=== PATIENT | female | born 2000 | race African-American/Black ===

== ENCOUNTER 2020-08-29 05:35 | Inpatient (IN) ==
[2020-08-29] MEDS ORDERED: BUTORPHANOL 2 MG/ML VIAL IV PRN (05:56)
[2020-08-29] MEDS ORDERED: MEPERIDINE 50 MG/1 ML VIAL IV PRN (05:56)
[2020-08-29] MEDS ORDERED: AMPICILLIN INJ 2,000 MG in SODIUM CHLORIDE 0.9% 100 ML IV ONE (05:58)
[2020-08-29] MEDS ORDERED: SODIUM CHLORIDE 0.9% 100 ML IV ONE (05:59)
[2020-08-29] MEDS ORDERED: AMPICILLIN 2,000 MG VIAL ONE (05:59)
[2020-08-29] MEDS ORDERED: LACTATED RINGERS 1,000 ML IV SCH (06:00)
[2020-08-29] MEDS: ONDANSETRON 4 MG/2 ML VIAL IV PRN ×2 (06:07→11:59)
[2020-08-29 06:21] LABS: Basophils % 0.1 % (0.0-0.8); Eosinophils # 0.1 10*3/uL (0.0-0.87); Eosinophils % 0.5 % (0.00-10.9); Hematocrit 32.7 VOL% (35.7-47.0); Hemoglobin 10.6 GM/DL (12.0-16.0); Immature Granulocytes % 1.1 %; Immature Granulocytes Absolute 0.12 #; Lymphocytes # 2.2 10*3/uL (1.4-4.0); Lymphocytes % 19.7 % (21.3-54.2); Mean Corpuscular HGB Conc 32.4 GM/DL (32-36); Mean Corpuscular Volume 86.5 FL (87-102); Mean Platelet Volume 11.5 FL (9.6-12.0); Monocytes % 9.5 % (1.7-12.7); Neutrophils % 69.1 % (38.7-73.9); Platelet Count 231 T/CUMM (130-400); Red Blood Count 3.78 MC/CUMM (3.8-5.5); Red Cell Distribution Width 13.1 % (9.3-17.3)
[2020-08-29 06:31] LABS: Alanine Aminotransferase 13 U/L (13-56); Albumin 2.7 G/DL (3.4-5.0); Alkaline Phosphatase 232 U/L (45-117); Aspartate Amino Transferase 20 U/L (0-37); Bilirubin,Total < 0.39 MG/DL (0.2-1.0); Blood Urea Nitrogen 7 MG/DL (7-18); Calcium 8.8 MG/DL (8.5-10.1); Estimated Glom Filtration Rate 155 ML/MIN; Glucose 81 MG/DL (74-106); Osmolality,Calculated 266.1 MOS/KG (273-304); Total Protein 7.8 G/DL (6.4-8.3)
[2020-08-29 06:54] LABS: Hypochromasia 2+; Platelet Estimate Normal
[2020-08-29] MEDS ORDERED: CITRIC ACID/SODIUM CITRATE 30 ML UDCUP PO ONE (07:31)
[2020-08-29] MEDS ORDERED: diphenhydrAMINE 50 MG/1 ML VIAL IV PRN ×2 (07:38)
[2020-08-29] MEDS ORDERED: PROMETHAZINE 25 MG/1 ML VIAL IM ONE (07:38)
[2020-08-29] MEDS ORDERED: hydrOXYzine HCL 25 MG/1 ML VIAL IM PRN (07:38)
[2020-08-29] MEDS ORDERED: ePHEDrine 50 MG/ML VIAL IV PRN (07:38)
[2020-08-29] MEDS ORDERED: ONDANSETRON 4 MG/2 ML VIAL IV ONE (07:38)
[2020-08-29] MEDS ORDERED: NALOXONE 0.4 MG/ML VIAL IV PRN (07:38)
[2020-08-29] MEDS ORDERED: FAMOTIDINE 20 MG/2 ML VIAL IV ONE (07:42)
[2020-08-29] MEDS ORDERED: LACTATED RINGERS 1,000 ML IV ONE (07:42)
[2020-08-29] MEDS ORDERED: fentaNYL 2 MCG/ROPIV 0.2% EPID 100 ML EPIDURAL SCH (08:00)
[2020-08-29] MEDS ORDERED: FAMOTIDINE 20 MG TABLET PO ONE (08:00)
[2020-08-29] MEDS ORDERED: OXYTOCIN/LR 20 UNIT/1,000 ML BAG IV SCH (09:00)
[2020-08-29 09:46] LABS: Bilirubin,Urine Negative (Negative); Blood, Urine Small mg/dL (Negative); Glucose,Urine (UA) Negative (Negative); Ketones,Urine Negative (Negative); Mucus,Urine Occasional /LPF (Occasional); Nitrite,Urine Negative (Negative); Protein,Urine Negative; RBC,Urine 15 /HPF (0-4); Squamous Epithelial Cell,Urine Occasional /HPF (0-10); Urine Appearance CLEAR (Clear); Urine Color Yellow (Yellow); Urine Urobilinogen < 2.0 EU/DL (0.2-1.0); WBC,Urine 1 /HPF (0-6)
[2020-08-29] MEDS ORDERED: AMPICILLIN INJ 1,000 MG in SODIUM CHLORIDE 0.9% 100 ML IV SCH (10:00)
[2020-08-29] MEDS ORDERED: TRANEXAMIC ACID 1,000 MG/10 ML VIAL ONE (10:17)
[2020-08-29] MEDS ORDERED: miSOPROStoL 200 MCG TABLET ONE (10:17)
[2020-08-29] MEDS ORDERED: METHYLERGONOVINE 0.2 MG/1 ML AMP ONE (10:18)
[2020-08-29] MEDS ORDERED: CARBOPROST TROMETHAMINE 250 MCG/ML AMP IM ONE (10:18)
[2020-08-29 10:37] LABS: Cord Venous Blood HCO3 22.4 MMOL/L; Cord Venous Blood PCO2 38.7 MMHG; Cord Venous Blood PO2 48.9 MMHG
[2020-08-29 10:38] LABS: Cord Arterial Blood HCO3 21.9 MMOL/L
[2020-08-29] MEDS: DOCUSATE SODIUM 100 MG CAPSULE PO PRN (21:28)
[2020-08-30] MEDS: IBUPROFEN 800 MG TABLET PO PRN ×2 (00:21→23:32)
[2020-08-30 05:15] LABS: Basophils % 0.2 % (0.0-0.8); Eosinophils # 0.1 10*3/uL (0.0-0.87); Eosinophils % 0.5 % (0.00-10.9); Hematocrit 24.9 VOL% (35.7-47.0); Immature Granulocytes % 0.4 %; Immature Granulocytes Absolute 0.05 #; Lymphocytes # 3.1 10*3/uL (1.4-4.0); Lymphocytes % 26.9 % (21.3-54.2); Mean Corpuscular HGB Conc 32.1 GM/DL (32-36); Mean Corpuscular Volume 85.6 FL (87-102); Mean Platelet Volume 11.9 FL (9.6-12.0); Monocytes % 8.5 % (1.7-12.7); Neutrophils % 63.5 % (38.7-73.9); Red Cell Distribution Width 13.1 % (9.3-17.3); White Blood Count 11.5 T/CUMM (4-12)
[2020-08-30 05:34] LABS: Platelet Count 170 T/CUMM (130-400); Red Blood Count 2.91 MC/CUMM (3.8-5.5)
[2020-08-30 06:10] LABS: Eosinophils 2 % (0-10); Hypochromasia 1+; Lymphocytes 18 % (20-55); Microcytosis Slight; Platelet Estimate Normal; Segmented Neutrophils 75 % (50-85); Total Cells Counted 100
[2020-08-30] MEDS: DOCUSATE SODIUM 100 MG CAPSULE PO PRN (20:48)
[2020-08-30] MEDS: FERROUS SULFATE 325 MG TABLET PO SCH (20:48)
[2020-08-31 08:00] VITALS: BP 111/50
[2020-08-31] MEDS: DOCUSATE SODIUM 100 MG CAPSULE PO PRN (09:09)
[2020-08-31] MEDS: FERROUS SULFATE 325 MG TABLET PO SCH (09:09)
== END 2020-08-31 11:35 | disposition home or self-care (01) | DRG 560 ==
LOC: N.LD 05:35 → N.LDOUT 05:35 → N.LD 05:37 → N.OB 12:35
PROVIDERS: ADMIT Obstetrics & Gynecology; ATTEND Obstetrics & Gynecology

== ENCOUNTER 2021-10-20 12:03 | Inpatient (IN) ==
[2021-10-20] MEDS ORDERED: CARBOPROST TROMETHAMINE 250 MCG/ML AMP IM PRN (12:09)
[2021-10-20] MEDS ORDERED: miSOPROStoL 200 MCG TABLET PO PRN (12:09)
[2021-10-20] MEDS ORDERED: ONDANSETRON 4 MG/2 ML VIAL IV PRN (12:09)
[2021-10-20] MEDS ORDERED: MEPERIDINE 50 MG/1 ML VIAL IV PRN (12:09)
[2021-10-20] MEDS ORDERED: LIDOCAINE 1% 50 ML VIAL MISC INJ ONE (12:09)
[2021-10-20] MEDS ORDERED: ePHEDrine 50 MG/ML VIAL IV PRN ×2 (12:15→12:16)
[2021-10-20] MEDS ORDERED: CITRIC ACID/SODIUM CITRATE 30 ML UDCUP PO ONE (12:15)
[2021-10-20] MEDS ORDERED: LACTATED RINGERS 1,000 ML IV ONE (12:15)
[2021-10-20] MEDS ORDERED: FAMOTIDINE 20 MG/2 ML VIAL IV ONE (12:15)
[2021-10-20] MEDS ORDERED: PROMETHAZINE 25 MG/1 ML VIAL IM ONE (12:16)
[2021-10-20] MEDS ORDERED: NALOXONE 0.4 MG/ML VIAL IV PRN (12:16)
[2021-10-20] MEDS ORDERED: hydrOXYzine HCL 25 MG/1 ML VIAL IM PRN (12:16)
[2021-10-20] MEDS ORDERED: diphenhydrAMINE 50 MG/1 ML VIAL IV PRN ×2 (12:16)
[2021-10-20] MEDS ORDERED: LACTATED RINGERS 250 ML IV PRN (12:16)
[2021-10-20] MEDS ORDERED: LACTATED RINGERS 1,000 ML IV SCH ×2 (12:30)
[2021-10-20] MEDS ORDERED: OXYTOCIN/LR 20 UNIT/1,000 ML BAG IV SCH (12:30)
[2021-10-20] MEDS ORDERED: fentaNYL 2 MCG/ROPIV 0.2% EPID 100 ML EPIDURAL SCH (12:30)
[2021-10-20 12:33] LABS: Basophils % 0.2 % (0.0-0.8); Eosinophils # 0.1 10*3/uL (0.0-0.87); Eosinophils % 2.1 % (0.00-10.9); Hematocrit 29.2 VOL% (35.7-47.0); Hemoglobin 9.1 GM/DL (12.0-16.0); Immature Granulocytes % 0.3 %; Immature Granulocytes Absolute 0.02 #; Lymphocytes # 1.5 10*3/uL (1.4-4.0); Lymphocytes % 25.3 % (21.3-54.2); Mean Corpuscular HGB Conc 31.2 GM/DL (32-36); Mean Corpuscular Volume 82.7 FL (87-102); Mean Platelet Volume 12.5 FL (9.6-12.0); Monocytes % 10.4 % (1.7-12.7); Neutrophils % 61.7 % (38.7-73.9); Platelet Count 191 T/CUMM (130-400); Red Blood Count 3.53 MC/CUMM (3.8-5.5); Red Cell Distribution Width 15.7 % (9.3-17.3); White Blood Count 5.8 T/CUMM (4-12)
[2021-10-20] MEDS ORDERED: AMPICILLIN INJ 2,000 MG in SODIUM CHLORIDE 0.9% 100 ML IV ONE (12:45)
[2021-10-20 13:09] LABS: Alanine Aminotransferase 15 U/L (13-56); Albumin 2.5 G/DL (3.4-5.0); Alkaline Phosphatase 233 U/L (45-117); Aspartate Amino Transferase 21 U/L (0-37); Bilirubin,Total < 0.39 MG/DL (0.20-1.00); Blood Urea Nitrogen 6 MG/DL (7-18); Calcium 8.7 MG/DL (8.5-10.1); Carbon Dioxide 21 MMOL/L (21-32); Estimated Glom Filtration Rate 154 ML/MIN; Glucose 69 MG/DL (74-106); Potassium 3.7 MMOL/L (3.5-5.1); Sodium 136 MMOL/L (136-145); Total Protein 7.1 G/DL (6.4-8.2)
[2021-10-20 15:24] LABS: Bilirubin,Urine Negative (Negative); Blood, Urine Large mg/dL (Negative); Glucose,Urine (UA) Negative (Negative); Ketones,Urine Negative (Negative); Mucus,Urine Occasional /LPF (Occasional); Nitrite,Urine Negative (Negative); Protein,Urine 30 MG/DL; RBC,Urine 910 /HPF (0-4); Urine Appearance Slightly Hazy (Clear); Urine Color Yellow (Yellow); Urine Specific Gravity 1.018 (1.001-1.035); Urine Urobilinogen < 2.0 EU/DL (<2.0)
[2021-10-20] MEDS ORDERED: miSOPROStoL 200 MCG TABLET ONE (16:50)
[2021-10-20] MEDS ORDERED: METHYLERGONOVINE 0.2 MG/1 ML AMP ONE (16:51)
[2021-10-20] MEDS ORDERED: CARBOPROST TROMETHAMINE 250 MCG/ML AMP IM ONE (16:51)
[2021-10-20] MEDS ORDERED: AMPICILLIN INJ 1,000 MG in SODIUM CHLORIDE 0.9% 100 ML IV SCH (17:00)
[2021-10-20 17:47] LABS: Eosinophils 3 % (0-10); Hypochromasia 1+; Lymphocytes 24 % (20-55); Microcytosis 1+; Platelet Estimate Normal; Segmented Neutrophils 63 % (50-85); Total Cells Counted 100
[2021-10-20 17:49] LABS: Cord Venous Blood HCO3 22.4 MMOL/L; Cord Venous Blood PCO2 43.5 MMHG
[2021-10-20] MEDS ORDERED: LANOLIN 50% CREAM 0.3 OZ TUBE TOP PRN (20:33)
[2021-10-20] MEDS ORDERED: BISACODYL 10 MG SUPP RECTAL PRN (20:33)
[2021-10-20] MEDS ORDERED: BENZOCAINE 20%/MENTHOL 0.5% SPRAY 56 GM CAN TOP PRN (20:33)
[2021-10-20] MEDS ORDERED: WITCH HAZEL PADS 100/JAR TOP PRN (20:33)
[2021-10-20] MEDS ORDERED: RHO(D) IMMUNE GLOBULIN 300 MCG SYRINGE IM ONE (20:33)
[2021-10-20] MEDS ORDERED: OXYTOCIN/LR 20 UNIT/1,000 ML BAG IV ONE (20:33)
[2021-10-20] MEDS ORDERED: DIPH/TET/ACEL PERT BOOSTER VACCINE 0.5 ML VIAL IM ONE (20:33)
[2021-10-20] MEDS ORDERED: oxyCODONE/ACETAMINOPHEN 5-325 MG TABLET PO PRN (20:33)
[2021-10-20] MEDS ORDERED: HYDROCORTISONE 2.5% RECTAL CREAM 30 GM TUBE TOP PRN (20:33)
[2021-10-20] MEDS ORDERED: MEASLES/MUMPS/RUBELLA VACCINE 0.5 ML VIAL SUBCUT ONE (20:33)
[2021-10-20] MEDS ORDERED: ACETAMINOPHEN 325 MG TABLET PO PRN (20:33)
[2021-10-20] MEDS: oxyCODONE/ACETAMINOPHEN 5-325 MG TABLET PO PRN (20:43)
[2021-10-20] MEDS: DOCUSATE SODIUM 100 MG CAPSULE PO SCH (20:43)
[2021-10-20] MEDS: IBUPROFEN 800 MG TABLET PO PRN (23:22)
[2021-10-21 05:51] LABS: Basophils % 0.3 % (0.0-0.8); Eosinophils % 0.6 % (0.00-10.9); Immature Granulocytes % 0.4 %; Immature Granulocytes Absolute 0.03 #; Lymphocytes # 1.6 10*3/uL (1.4-4.0); Lymphocytes % 21.4 % (21.3-54.2); Mean Corpuscular Volume 82.9 FL (87-102); Mean Platelet Volume 12.6 FL (9.6-12.0); Monocytes % 6.9 % (1.7-12.7); Neutrophils % 70.4 % (38.7-73.9); Platelet Count 177 T/CUMM (130-400); Red Cell Distribution Width 15.5 % (9.3-17.3); White Blood Count 7.2 T/CUMM (4-12)
[2021-10-21] MEDS: oxyCODONE/ACETAMINOPHEN 5-325 MG TABLET PO PRN ×2 (08:13→18:59)
[2021-10-21] MEDS: DOCUSATE SODIUM 100 MG CAPSULE PO SCH ×3 (08:13→21:38)
[2021-10-21] MEDS: IBUPROFEN 800 MG TABLET PO PRN ×2 (08:13→19:00)
[2021-10-21] MEDS ORDERED: diphenhydrAMINE CAP 25 MG CAPSULE PO PRN (16:05)
[2021-10-21] MEDS ORDERED: MENTHOL/ZINC OXIDE OINT 71 GM JAR TOP PRN (22:30)
[2021-10-22] MEDS: IBUPROFEN 800 MG TABLET PO PRN ×2 (00:25→06:17)
[2021-10-22] MEDS: oxyCODONE/ACETAMINOPHEN 5-325 MG TABLET PO PRN ×2 (00:25→06:18)
[2021-10-22] MEDS: FLUTICASONE 50 MCG NASAL SPRAY 16 GM BOTTLE BOTH NARES SCH ×2 (04:47→08:59)
[2021-10-22 08:07] VITALS: BP 123/71
[2021-10-22] MEDS: DOCUSATE SODIUM 100 MG CAPSULE PO SCH (08:59)
== END 2021-10-22 10:45 | disposition home or self-care (01) | DRG 560 ==
LOC: N.LD 12:03 → N.OB 20:25
PROVIDERS: ADMIT Obstetrics & Gynecology; ATTEND Obstetrics & Gynecology

== ENCOUNTER 2022-11-14 05:20 | Inpatient (IN) ==
[2022-11-14] MEDS ORDERED: METHYLERGONOVINE 0.2 MG/1 ML AMP IM PRN (05:29)
[2022-11-14] MEDS ORDERED: OXYTOCIN/LR 20 UNIT/1,000 ML BAG IV ONE ×3 (05:29→12:48)
[2022-11-14] MEDS ORDERED: CARBOPROST TROMETHAMINE 250 MCG/ML AMP IM PRN (05:29)
[2022-11-14] MEDS ORDERED: miSOPROStoL 200 MCG TABLET RECTAL PRN (05:29)
[2022-11-14] MEDS ORDERED: TRANEXAMIC ACID 1,000 MG in SODIUM CHLORIDE 0.9% 100 ML IV PRN (05:29)
[2022-11-14] MEDS ORDERED: BUTORPHANOL 2 MG/ML VIAL IV PRN (05:29)
[2022-11-14] MEDS ORDERED: MEPERIDINE 50 MG/1 ML VIAL IV PRN (05:29)
[2022-11-14] MEDS ORDERED: ONDANSETRON 4 MG/2 ML VIAL IV PRN (05:29)
[2022-11-14 06:05] LABS: Basophils % 0.1 % (0.0-0.8); Eosinophils % 0.6 % (0.00-10.9); Hematocrit 27.4 VOL% (35.7-47.0); Hemoglobin 8.5 GM/DL (12.0-16.0); Immature Granulocytes % 0.3 %; Immature Granulocytes Absolute 0.02 #; Lymphocytes # 2.8 10*3/uL (1.4-4.0); Lymphocytes % 40.2 % (21.3-54.2); Mean Corpuscular Volume 76.8 FL (87-102); Mean Platelet Volume 11.5 FL (9.6-12.0); Monocytes # 0.7 10*3/uL (0.11-0.8); NRBC # 0.02 10*3/uL; Neutrophils % 48.8 % (38.7-73.9); Platelet Count 225 T/CUMM (130-400); Red Blood Count 3.57 MC/CUMM (3.8-5.5)
[2022-11-14] MEDS: LACTATED RINGERS 1,000 ML IV SCH ×2 (06:11→09:12)
[2022-11-14 06:24] LABS: Hypochromia Slight; Microcytosis Slight; Platelet Estimate Normal
[2022-11-14] MEDS ORDERED: LACTATED RINGERS 1,000 ML IV ONE (06:26)
[2022-11-14] MEDS ORDERED: PROMETHAZINE 25 MG/1 ML VIAL IM ONE (06:26)
[2022-11-14] MEDS ORDERED: CITRIC ACID/SODIUM CITRATE 30 ML UDCUP PO ONE (06:26)
[2022-11-14] MEDS ORDERED: FAMOTIDINE 20 MG/2 ML VIAL IV ONE (06:26)
[2022-11-14] MEDS ORDERED: ePHEDrine 50 MG/ML VIAL IV PRN (06:26)
[2022-11-14] MEDS ORDERED: hydrOXYzine HCL 25 MG/1 ML VIAL IM PRN (06:26)
[2022-11-14] MEDS ORDERED: diphenhydrAMINE 50 MG/1 ML VIAL IV PRN ×2 (06:26)
[2022-11-14] MEDS ORDERED: NALOXONE 0.4 MG/ML VIAL IV PRN (06:26)
[2022-11-14] MEDS ORDERED: fentaNYL 2 MCG/ROPIV 0.2% EPID 100 ML EPIDURAL SCH (06:30)
[2022-11-14] MEDS ORDERED: LACTATED RINGERS 1,000 ML IV SCH (06:30)
[2022-11-14] MEDS ORDERED: OXYTOCIN/LR 20 UNIT/1,000 ML BAG IV SCH (06:30)
[2022-11-14 06:33] LABS: Alanine Aminotransferase 12 U/L (13-56); Albumin 2.4 G/DL (3.4-5.0); Alkaline Phosphatase 206 U/L (45-117); Aspartate Amino Transferase 19 U/L (0-37); Bilirubin,Total < 0.39 MG/DL (0.20-1.00); Blood Urea Nitrogen 8 MG/DL (7-18); Calcium 8.3 MG/DL (8.5-10.1); Carbon Dioxide 20 MMOL/L (21-32); Chloride 110 MMOL/L (98-107); Glucose 140 MG/DL (74-106); Osmolality,Calculated 272.8 MOS/KG (273-304); Potassium 3.5 MMOL/L (3.5-5.1); Sodium 137 MMOL/L (136-145); Total Protein 6.9 G/DL (6.4-8.2)
[2022-11-14 10:03] LABS: Bacteria,Urine Occasional /HPF (Few); Mucus,Urine Occasional /LPF (Occasional); RBC,Urine 45 /HPF (0-4); Squamous Epithelial Cell,Urine Occasional /HPF (0-10)
[2022-11-14 10:04] LABS: Bilirubin,Urine Negative (Negative); Blood, Urine Moderate mg/dL (Negative); Glucose,Urine (UA) Negative (Negative); Ketones,Urine Negative (Negative); Nitrite,Urine Negative (Negative); Protein,Urine Negative (Negative); Urine Appearance Clear (Clear); Urine Color Yellow (Yellow); Urine Specific Gravity 1.015 (1.001-1.035); Urine Urobilinogen 0.2 eU/dL (<2.0); Urine pH 6.5 (4.5-8.0)
[2022-11-14] MEDS ORDERED: miSOPROStoL 200 MCG TABLET ONE (11:17)
[2022-11-14] MEDS ORDERED: METHYLERGONOVINE 0.2 MG/1 ML AMP ONE (11:18)
[2022-11-14] MEDS ORDERED: CARBOPROST TROMETHAMINE 250 MCG/ML AMP IM ONE (11:18)
[2022-11-14 12:04] LABS: Cord Venous Blood PCO2 38.6 MMHG; Cord Venous Blood PO2 41.9
[2022-11-14] MEDS ORDERED: ACETAMINOPHEN 325 MG TABLET PO PRN (12:48)
[2022-11-14] MEDS ORDERED: WITCH HAZEL PADS 100/JAR TOP PRN (12:48)
[2022-11-14] MEDS ORDERED: DIPH/TET/ACEL PERT BOOSTER VACCINE 0.5 ML VIAL IM ONE (12:48)
[2022-11-14] MEDS ORDERED: BISACODYL 10 MG SUPP RECTAL PRN (12:48)
[2022-11-14] MEDS ORDERED: HYDROCORTISONE 2.5% RECTAL CREAM 30 GM TUBE TOP PRN (12:48)
[2022-11-14] MEDS ORDERED: RHO(D) IMMUNE GLOBULIN 300 MCG SYRINGE IM ONE (12:48)
[2022-11-14] MEDS ORDERED: LANOLIN 50% CREAM 0.3 OZ TUBE TOP PRN (12:48)
[2022-11-14] MEDS ORDERED: BENZOCAINE 20%/MENTHOL 0.5% SPRAY 56 GM CAN TOP PRN (12:48)
[2022-11-14] MEDS ORDERED: MEASLES/MUMPS/RUBELLA VACCINE 0.5 ML VIAL SUBCUT ONE (12:48)
[2022-11-14] MEDS ORDERED: oxyCODONE/ACETAMINOPHEN 5-325 MG TABLET PO PRN (12:48)
[2022-11-14] MEDS: IBUPROFEN 800 MG TABLET PO PRN ×2 (15:32→23:34)
[2022-11-14] MEDS: oxyCODONE/ACETAMINOPHEN 5-325 MG TABLET PO PRN (17:06)
[2022-11-14] MEDS: DOCUSATE SODIUM 100 MG CAPSULE PO SCH (21:23)
[2022-11-14] MEDS: FERROUS SULFATE 325 MG TABLET PO SCH (21:23)
[2022-11-15 04:42] LABS: Basophils % 0.2 % (0.0-0.8); Eosinophils # 0.1 10*3/uL (0.0-0.87); Eosinophils % 0.8 % (0.00-10.9); Hematocrit 25.2 VOL% (35.7-47.0); Hemoglobin 7.7 GM/DL (12.0-16.0); Immature Granulocytes % 0.3 %; Immature Granulocytes Absolute 0.03 #; Lymphocytes # 2.6 10*3/uL (1.4-4.0); Mean Corpuscular HGB Conc 30.6 GM/DL (32-36); Mean Corpuscular Volume 78.5 FL (87-102); Mean Platelet Volume 12.1 FL (9.6-12.0); Monocytes # 0.6 10*3/uL (0.11-0.8); Monocytes % 6.7 % (1.7-12.7); Platelet Count 178 T/CUMM (130-400); Red Blood Count 3.21 MC/CUMM (3.8-5.5); Red Cell Distribution Width 16.9 % (9.3-17.3); White Blood Count 9.6 T/CUMM (4-12)
[2022-11-15] MEDS: oxyCODONE/ACETAMINOPHEN 5-325 MG TABLET PO PRN ×3 (07:15→20:55)
[2022-11-15] MEDS: MULTIVITAMIN (PRENATAL) TABLET PO SCH (08:18)
[2022-11-15] MEDS: DOCUSATE SODIUM 100 MG CAPSULE PO SCH ×2 (08:18→20:53)
[2022-11-15] MEDS: FERROUS SULFATE 325 MG TABLET PO SCH ×2 (08:18→20:52)
[2022-11-15] MEDS ORDERED: SODIUM CHLORIDE 0.9% 1,000 ML IV PRN (08:59)
[2022-11-16] MEDS: oxyCODONE/ACETAMINOPHEN 5-325 MG TABLET PO PRN (06:15)
[2022-11-16] MEDS: DOCUSATE SODIUM 100 MG CAPSULE PO SCH (08:03)
[2022-11-16] MEDS: FERROUS SULFATE 325 MG TABLET PO SCH (08:03)
[2022-11-16] MEDS: MULTIVITAMIN (PRENATAL) TABLET PO SCH (08:03)
[2022-11-16] MEDS ORDERED: SODIUM CHLORIDE 0.9% 1,000 ML IV PRN (09:24)
[2022-11-16] MEDS ORDERED: oxyCODONE/ACETAMINOPHEN 5-325 MG TABLET PO PRN (10:37)
[2022-11-16] MEDS: IBUPROFEN 800 MG TABLET PO PRN (15:42)
[2022-11-16 15:47] VITALS: BP 114/68
[2022-11-16] MEDS ORDERED: ACETAMINOPHEN/CODEINE 300-30 MG TABLET PO ONE (17:05)
[2022-11-16 17:13] LABS: Basophils % 0.2 % (0.0-0.8); Eosinophils # 0.2 10*3/uL (0.0-0.87); Eosinophils % 1.5 % (0.00-10.9); Hematocrit 33.9 VOL% (35.7-47.0); Hemoglobin 10.5 GM/DL (12.0-16.0); Immature Granulocytes % 0.6 %; Immature Granulocytes Absolute 0.07 #; Lymphocytes # 3.2 10*3/uL (1.4-4.0); Mean Corpuscular Volume 81.3 FL (87-102); Mean Platelet Volume 11.6 FL (9.6-12.0); Monocytes % 8.3 % (1.7-12.7); NRBC # 0.04 10*3/uL; Neutrophils % 63.4 % (38.7-73.9); Platelet Count 194 T/CUMM (130-400); Red Blood Count 4.17 MC/CUMM (3.8-5.5); Red Cell Distribution Width 18.6 % (9.3-17.3); White Blood Count 12.2 T/CUMM (4-12)
== END 2022-11-16 18:20 | disposition home or self-care (01) | DRG 560 ==
LOC: N.LD 05:20 → N.OB 14:28
PROVIDERS: ADMIT Obstetrics & Gynecology; ATTEND Obstetrics & Gynecology